=== PATIENT | male | born 1965 ===

== ENCOUNTER 2022-12-30 07:53 | Day surgery (SDC) | payer OTHER ==
[~2022-12-30] VITALS: Ht 175.3 cm; Wt 102.1 kg
[~2022-12-30 07:53] MED LIST: [UNRECOGNIZED DRUG - OTHER] PO
[2022-12-30] MEDS ORDERED: TRAMADOL HCL50 MG PO (15:42)
== END 2022-12-30 17:10 | disposition home or self-care (01) ==
LOC: EDSEX 07:53 → CIR.AMB 07:53
PROVIDERS: ATTEND Surgery
DX: N52.9 Male erectile dysfunction, unspecified (principal); N48.6 Induration penis plastica; Z20.822 Contact with and (suspected) exposure to COVID-19; Z91.013 Allergy to seafood
CPT/HCPCS: 54405; 54112; 54360; C1813